=== PATIENT | female | born 1965 | race Caucasian/White ===

== ENCOUNTER 2016-09-03 10:00 | Emergency (ER) | payer BC ==
[2016-09-03 12:06] LABS: HEMOGLOBIN 14.2 gm/dl (12.3-15.3); RED BLOOD COUNT 4.44 M/UL (4.00-5.10); WHITE BLOOD COUNT 9.4 K/UL (4.5-11.0)
[2016-09-03 12:27] LABS: BUN/CREATININE RATIO 11 (0-10)
== END 2016-09-03 14:00 | disposition home or self-care (01) ==
LOC: ER1 10:00
PROVIDERS: Emergency Medicine
DX: E87.6 Hypokalemia (principal); R51 Headache; F41.9 Anxiety disorder, unspecified; I10 Essential (primary) hypertension; F17.200 Nicotine dependence, unspecified, uncomplicated
CPT/HCPCS: 36415; 70450; 71010; 80053; 82550; 82553; 83874; 84484; 85025; 93005; 99284